=== PATIENT | female | born 1965 | race Caucasian/White ===

== ENCOUNTER 2023-08-02 13:09 | Outpatient (CLI) | payer BC ==
[2023-08-02 14:12] LABS: BASOPHILS % (AUTO) 0.5 % (0-1); EOSINOPHILS # (AUTO) 0.1 X10'3 (0-0.9); EOSINOPHILS % (AUTO) 2.4 % (0-6); HEMATOCRIT 34.1 % (35.0-45.0); HEMOGLOBIN 11.3 g/dl (12.0-16.0); LYMPHOCYTES # (AUTO) 1.6 X10'3 (1.1-4.8); LYMPHOCYTES % (AUTO) 28.7 % (21-51); MEAN CORPUSCULAR HEMOGLOBIN 31.4 PG (27.0-31.0); MEAN PLATELET VOLUME 8.7 FL (7.4-10.4); MONOCYTES # (AUTO) 0.5 X10'3 (0-0.9); MONOCYTES % (AUTO) 8.9 % (2-12); NEUTROPHILS # (AUTO) 3.3 X10'3 (1.8-7.7); NEUTROPHILS % (AUTO) 59.5 % (42-75); PLATELET COUNT 263 X10'3 (140-440); RED BLOOD COUNT 3.59 X10'6 (4.20-5.60); WHITE BLOOD COUNT 5.6 X10'3 (4.5-11.0)
[2023-08-02 14:20] LABS: APTT 28 SECONDS (22-32); PROTHROMBIN TIME 10.9 SECONDS (9.0-12.0)
[2023-08-02 14:29] LABS: ALANINE AMINOTRANSFERASE 24 U/L (12-78); ALBUMIN 3.2 G/DL (3.4-5.0); ALBUMIN/GLOBULIN RATIO 1.1 (1.1-1.5); ALKALINE PHOSPHATASE 55 IU/L (46-116); ANION GAP 8 (8-16); ASPARTATE AMINO TRANSFERASE 16 U/L (10-37); BILIRUBIN,TOTAL 0.4 MG/DL (0.1-1.0); BLOOD UREA NITROGEN 15 MG/DL (7-18); CALCIUM 8.9 MG/DL (8.5-10.1); CHLORIDE 108 MMOL/L (99-107); CREATININE 1.15 MG/DL (0.40-0.90); GLUCOSE 79 MG/DL (70-104); POTASSIUM 4.4 MMOL/L (3.5-5.1); PRO BRAIN NATRIURETIC PEPTIDE 1164 PG/ML (0-125); SODIUM 146 MMOL/L (135-145); TOTAL CARBON DIOXIDE 30.4 MMOL/L (24-32); TOTAL PROTEIN 6.2 G/DL (6.4-8.2); eGFR 48 ML/MIN
[2023-08-02] MEDS ORDERED: IODIXANOL 320 MG/ML INFUS..BTL 100ML IV ONE (14:36)
== END 2023-08-02 23:59 | disposition home or self-care (01) ==
LOC: RAD 13:09
PROVIDERS: ATTEND Internal Medicine Cardiovascular Disease
DX: I71.21 Aneurysm of the ascending aorta, without rupture (principal); I35.0 Nonrheumatic aortic (valve) stenosis; R06.02 Shortness of breath; I65.29 Occlusion and stenosis of unspecified carotid artery; I70.0 Atherosclerosis of aorta; M43.17 Spondylolisthesis, lumbosacral region; Z90.49 Acquired absence of other specified parts of digestive tract; Z90.710 Acquired absence of both cervix and uterus
CPT/HCPCS: 36415; 71275; 74174; 75572; 80053; 83880; 85025; 85610; 85730; J3490; Q9967

== ENCOUNTER 2023-08-22 09:09 | Day surgery (SDC) | payer OTHER ==
[2023-08-22] VITALS (9 sets, daily range): BP systolic 104–136; BP diastolic 41–55; PULSE 52–60; RESP 9–19; TEMP 97.6; O2SAT 95–98
[~2023-08-22] VITALS: Ht 162.6 cm; Wt 80.5 kg
[2023-08-22] MEDS ORDERED: sodium bicarbonate 1meq/ml syr 150 ML in dextrose 5%-water 1,000 ML IV SCH (09:40)
[2023-08-22] MEDS ORDERED: diphenhydrAMINE 25mg capsule PO PRN (09:45)
[2023-08-22] MEDS ORDERED: normal saline 1,000 ML IV SCH (09:45)
[2023-08-22] MEDS ORDERED: midazolam 1 mg/ML 2ml injection ONE ×3 (10:19→11:53)
[2023-08-22] MEDS ORDERED: verapamil 2.5 mg/ml inj IV ONE (10:19)
[2023-08-22] MEDS ORDERED: fentaNYL/PF 50MCG/1 ML 2ML syringe ONE (10:19)
[2023-08-22] MEDS ORDERED: iohexol 350 MG/ML 50ML vial IV ONE ×3 (10:19→12:12)
[2023-08-22] MEDS ORDERED: heparin 1,000unit/ml 10ml vial 10 ML ONE (10:19)
[2023-08-22] MEDS ORDERED: LIDOcaine 1% 30ml preserv. free vial ONE (10:19)
[2023-08-22] MEDS ORDERED: iohexol 350MG/ML 100ml bottle IV ONE (10:20)
[2023-08-22] MEDS ORDERED: [UNRECOGNIZED DRUG - CODE] TOP (10:27)
[2023-08-22] MEDS ORDERED: SPIR50TA5 PO (10:27)
[2023-08-22] MEDS ORDERED: CARV-50 PO (10:27)
[2023-08-22] MEDS ORDERED: SACU1TAB7 PO (10:27)
[2023-08-22] MEDS ORDERED: TRAZ-251 PO (10:27)
[2023-08-22] MEDS ORDERED: ROSU20TA73 PO (10:27)
[2023-08-22] MEDS ORDERED: DESV100T16 PO (10:27)
[2023-08-22] MEDS ORDERED: nitroGLYCERIN 500mcg/5mL D5W 5 ML IV ONE (10:29)
[2023-08-22 10:40] LABS: BASOPHILS % (AUTO) 0.8 % (0-1); EOSINOPHILS # (AUTO) 0.2 X10'3 (0-0.9); EOSINOPHILS % (AUTO) 3.2 % (0-6); HEMATOCRIT 36.2 % (35.0-45.0); LYMPHOCYTES # (AUTO) 1.4 X10'3 (1.1-4.8); MEAN CORPUSCULAR HEMOGLOBIN 31.3 PG (27.0-31.0); MEAN CORPUSCULAR HGB CONC 33.1 g/dL (33.0-36.5); MEAN CORPUSCULAR VOLUME 94.5 FL (78-98); MEAN PLATELET VOLUME 11.3 FL (7.4-10.4); MONOCYTES # (AUTO) 0.4 X10'3 (0-0.9); MONOCYTES % (AUTO) 6.7 % (2-12); NEUTROPHILS # (AUTO) 3.5 X10'3 (1.8-7.7); NEUTROPHILS % (AUTO) 64.3 % (42-75); PLATELET COUNT 128 X10'3 (140-440); RED BLOOD COUNT 3.83 X10'6 (4.20-5.60); RED CELL DISTRIBUTION WIDTH 13.1 % (11.5-14.5); WHITE BLOOD COUNT 5.5 X10'3 (4.5-11.0)
[2023-08-22] MEDS ORDERED: normal saline 1000ml 1,000 ML IV SCH (13:10)
[2023-08-22] MEDS ORDERED: ondansetron/PF 4mg/2ml inj IV PRN (13:10)
[2023-08-22] MEDS ORDERED: proCHLORperazine 10 MG/2 ml inj IV PRN (13:10)
[2023-08-22] MEDS ORDERED: HYDROcodone/acetaminophen 5mg/325mg tablet PO PRN (13:10)
[2023-08-22] MEDS ORDERED: HYDROcodone/acetaminophen 10/325mg tab PO PRN (13:10)
== END 2023-08-22 16:15 | disposition home or self-care (01) ==
LOC: SSTAY O 09:09
PROVIDERS: ATTEND Internal Medicine Cardiovascular Disease
DX: I35.2 Nonrheumatic aortic (valve) stenosis with insufficiency (principal); I25.10 Atherosclerotic heart disease of native coronary artery without angina pectoris; I42.8 Other cardiomyopathies; E78.5 Hyperlipidemia, unspecified; K21.9 Gastro-esophageal reflux disease without esophagitis; Z79.899 Other long term (current) drug therapy; Z90.710 Acquired absence of both cervix and uterus; Z98.51 Tubal ligation status; Z98.890 Other specified postprocedural states; Z98.84 Bariatric surgery status; Z72.89 Other problems related to lifestyle; Z88.2 Allergy status to sulfonamides; Z88.8 Allergy status to other drugs, medicaments and biological substances; Z82.49 Family history of ischemic heart disease and other diseases of the circulatory system; Z82.3 Family history of stroke
CPT/HCPCS: 36415; 85025; 93005; 93460; 99152; 99153; C1769; J1644; J2250; J3010; J3490; J7030; Q0163; Q9967; A6258; A6402; A6449; C1751; C1760; C1894